=== PATIENT | male | born 1960 | race Two or more races ===

== ENCOUNTER 2021-04-18 13:07 | Emergency (ER) | payer MEDICAID ==
[~2021-04-18] VITALS: Ht 170.2 cm; Wt 72.7 kg
[2021-04-18] MEDS ORDERED: IBUPROFEN 600 MG TABLET PO ONE (15:30)
[2021-04-18 16:30] VITALS: BP 128/81
== END 2021-04-18 16:45 | disposition home or self-care (01) ==
LOC: EMS 13:07
DX: S46.912A Strain of unspecified muscle, fascia and tendon at shoulder and upper arm level, left arm, initial encounter (principal); S20.211A Contusion of right front wall of thorax, initial encounter; S00.81XA Abrasion of other part of head, initial encounter; W19.XXXA Unspecified fall, initial encounter; Y93.89 Activity, other specified; Y92.89 Other specified places as the place of occurrence of the external cause; Y99.8 Other external cause status
CPT/HCPCS: 71045; 99284